=== PATIENT | male | born 1955 | race African-American/Black ===

== ENCOUNTER 2017-03-31 09:10 | Inpatient (IN) ==
[2017-03-31] MEDS ORDERED: ASPIRIN 325 MG TABLET PO STA (09:40)
[2017-03-31] MEDS ORDERED: ASPIRIN 325 MG TABLET ONE (09:46)
[2017-03-31 10:30] LABS: Basophils % 0.2 % (0.0-0.8); Eosinophils % 0.8 % (0.00-10.9); Hematocrit 39.4 VOL% (42.0-52.0); Hemoglobin 13.7 GM/DL (14.0-18.0); Immature Granulocytes % 0.2 %; Immature Granulocytes Absolute 0.01 #; Lymphocytes # 1.3 10*3/uL (1.4-4.0); Lymphocytes % 24.6 % (21.2-54.2); Mean Corpuscular HGB Conc 34.8 GM/DL (32-36); Mean Corpuscular Hemoglobin 32 PG (27-34); Mean Corpuscular Volume 92.7 FL (87-102); Mean Platelet Volume 11.4 FL (9.6-12.0); Monocytes # 0.5 10*3/uL (0.11-0.8); Monocytes % 9.8 % (1.7-12.7); Neutrophils # 3.3 10*3/uL (1.4-7.4); Neutrophils % 64.4 % (38.7-73.9); Platelet Count 112 T/CUMM (130-400); Red Blood Count 4.25 MC/CUMM (3.8-5.5); Red Cell Distribution Width 13.7 % (9.3-17.3); White Blood Count 5.1 T/CUMM (4-12)
[2017-03-31 10:40] LABS: PT Patient Result 10.8 SECS
[2017-03-31 11:04] LABS: Albumin 3.8 G/DL (3.4-5.0); Bilirubin,Total 0.9 MG/DL (0.2-1.0); Calcium 9.4 MG/DL (8.5-10.1); Osmolality,Calculated 278.5 MOS/KG (273-304); Potassium 3.3 MMOL/L (3.5-5.1); Total Protein 7.5 G/DL (6.4-8.3)
[2017-03-31] MEDS ORDERED: LABETALOL 20 MG/4 ML SYRINGE IV PRN (11:13)
[2017-03-31] MEDS ORDERED: LABETALOL 20 MG/4 ML SYRINGE IV ONE (11:41)
[2017-03-31 12:38] LABS: Cholesterol 226 MG/DL (50-200); HDL Cholesterol 54 MG/DL (40-60); Risk Ratio 4.19; Triglycerides 131 MG/DL (2-150); Troponin I Only < 0.015 NG/ML (0.00-0.045); VLDL CHOLESTEROL 26.2 MG/DL
[2017-03-31 17:36] LABS: Barbiturates Screen,Urine Negative (Negative); Benzodiazepines Screen,Urine Negative (Negative); Cannabinoid Screen,Urine Negative (Negative); Opiate Screen,Urine Positive (Negative); Phencyclidine Screen,Urine Negative (Negative)
[2017-03-31] MEDS: amLODIPine 10 MG TABLET PO SCH (21:09)
[2017-03-31] MEDS: CARVEDILOL 25 MG TABLET PO SCH (21:09)
[2017-04-01 05:27] LABS: Basophils % 0.3 % (0.0-0.8); Eosinophils # 0.1 10*3/uL (0.0-0.87); Eosinophils % 1.4 % (0.00-10.9); Hematocrit 31.9 VOL% (42.0-52.0); Hemoglobin 10.7 GM/DL (14.0-18.0); Immature Granulocytes % 0.3 %; Immature Granulocytes Absolute 0.01 #; Lymphocytes # 1.2 10*3/uL (1.4-4.0); Lymphocytes % 34.3 % (21.2-54.2); Mean Corpuscular HGB Conc 33.5 GM/DL (32-36); Mean Corpuscular Hemoglobin 32 PG (27-34); Mean Corpuscular Volume 95.5 FL (87-102); Mean Platelet Volume 11.8 FL (9.6-12.0); Monocytes # 0.5 10*3/uL (0.11-0.8); Monocytes % 12.5 % (1.7-12.7); Neutrophils # 1.9 10*3/uL (1.4-7.4); Neutrophils % 51.2 % (38.7-73.9); Platelet Count 87 T/CUMM (130-400); Red Blood Count 3.34 MC/CUMM (3.8-5.5); Red Cell Distribution Width 13.6 % (9.3-17.3); White Blood Count 3.6 T/CUMM (4-12)
[2017-04-01 05:59] LABS: Calcium 8.4 MG/DL (8.5-10.1); Eosinophils 3 % (0-10); Giant Platelets Few; Hypochromasia 1+; Lymphocytes 29 % (20-55); Osmolality,Calculated 283.1 MOS/KG (273-304); Ovalocytes Slight; Platelet Estimate Decreased; Segmented Neutrophils 55 % (50-85); Total Cells Counted 100
[2017-04-01] MEDS: VALSARTAN 160 MG TABLET PO SCH (08:32)
[2017-04-01] MEDS: POTASSIUM CHLORIDE 8 MEQ CAPSULE PO SCH (08:32)
[2017-04-01] MEDS: CARVEDILOL 25 MG TABLET PO SCH ×2 (08:32→20:29)
[2017-04-01] MEDS: ASPIRIN 325 MG TABLET PO SCH (08:32)
[2017-04-01] MEDS: CLOPIDOGREL 75 MG TABLET PO SCH (08:32)
[2017-04-01] MEDS ORDERED: DIAZEPAM 5 MG TABLET PO ONE (09:00)
[2017-04-01] MEDS ORDERED: POTASSIUM CHLORIDE 20 MEQ TABLET PO ONE (11:00)
[2017-04-01] MEDS ORDERED: DONEPEZIL 10 MG TABLET ONE (15:58)
[2017-04-01] MEDS: DONEPEZIL 10 MG TABLET PO SCH (16:07)
[2017-04-01] MEDS: amLODIPine 10 MG TABLET PO SCH (20:29)
[2017-04-01] MEDS: ATORVASTATIN 40 MG TABLET PO SCH (20:29)
[2017-04-02] MEDS: CLOPIDOGREL 75 MG TABLET PO SCH (08:27)
[2017-04-02] MEDS: CARVEDILOL 25 MG TABLET PO SCH ×2 (08:27→21:14)
[2017-04-02] MEDS: VALSARTAN 160 MG TABLET PO SCH (08:27)
[2017-04-02] MEDS: ASPIRIN 325 MG TABLET PO SCH (08:28)
[2017-04-02] MEDS: POTASSIUM CHLORIDE 8 MEQ CAPSULE PO SCH (08:28)
[2017-04-02] MEDS ORDERED: POTASSIUM CHLORIDE 20 MEQ/15 ML UDCUP PO ONE (11:58)
[2017-04-02] MEDS: DONEPEZIL 10 MG TABLET PO SCH (16:47)
[2017-04-02] MEDS: amLODIPine 10 MG TABLET PO SCH (21:14)
[2017-04-02] MEDS: ATORVASTATIN 40 MG TABLET PO SCH (21:14)
[2017-04-03] MEDS: CLOPIDOGREL 75 MG TABLET PO SCH (09:08)
[2017-04-03] MEDS: ASPIRIN 325 MG TABLET PO SCH (09:08)
[2017-04-03] MEDS: CARVEDILOL 25 MG TABLET PO SCH ×2 (09:08→20:11)
[2017-04-03] MEDS: POTASSIUM CHLORIDE 8 MEQ CAPSULE PO SCH (09:08)
[2017-04-03] MEDS: VALSARTAN 160 MG TABLET PO SCH (09:08)
[2017-04-03] MEDS: DONEPEZIL 10 MG TABLET PO SCH (17:13)
[2017-04-03] MEDS: ATORVASTATIN 40 MG TABLET PO SCH (20:11)
[2017-04-03] MEDS: amLODIPine 10 MG TABLET PO SCH (20:11)
[2017-04-04 05:53] LABS: Apearance,Urine CLEAR (Clear); Bacteria,Urine Occasional /HPF (Few); Bilirubin,Urine Negative (Negative); Blood, Urine Negative (Negative); Glucose,Urine (UA) Negative (Negative); Ketones,Urine Negative (Negative); Mucus,Urine Occasional /LPF (Occasional); Nitrite,Urine Negative (Negative); Protein,Urine Negative; RBC,Urine 1 /HPF (0-4); Squamous Epithelial Cell,Urine Occasional /HPF (0-10); Urine Color Yellow (Yellow); Urine Specific Gravity 1.021 (1.001-1.035); WBC,Urine 1 /HPF (0-6)
[2017-04-04] MEDS: POTASSIUM CHLORIDE 8 MEQ CAPSULE PO SCH (08:45)
[2017-04-04] MEDS: CLOPIDOGREL 75 MG TABLET PO SCH (08:45)
[2017-04-04] MEDS: ASPIRIN 325 MG TABLET PO SCH (08:45)
[2017-04-04] MEDS: VALSARTAN 160 MG TABLET PO SCH (08:45)
[2017-04-04] MEDS: CARVEDILOL 25 MG TABLET PO SCH ×2 (08:45→21:11)
[2017-04-04] MEDS: DONEPEZIL 10 MG TABLET PO SCH (17:32)
[2017-04-04] MEDS: amLODIPine 10 MG TABLET PO SCH (21:10)
[2017-04-04] MEDS: ATORVASTATIN 40 MG TABLET PO SCH (21:12)
[2017-04-05 08:16] VITALS: BP 123/61
[2017-04-05] MEDS: CARVEDILOL 25 MG TABLET PO SCH (09:24)
[2017-04-05] MEDS: CLOPIDOGREL 75 MG TABLET PO SCH (09:24)
[2017-04-05] MEDS: POTASSIUM CHLORIDE 8 MEQ CAPSULE PO SCH (09:24)
[2017-04-05] MEDS: VALSARTAN 160 MG TABLET PO SCH (09:24)
== END 2017-04-05 11:50 | disposition swing bed (61) | DRG 65 ==
LOC: EDUNIT# → EDBD → N.ED 09:10 → N.EDINP 10:49 → SUATTDRO 10:49 → N.EDINP 12:28 → N.4E 12:46
PROVIDERS: ADMIT Family Medicine; ATTEND Internal Medicine Geriatric Medicine

== ENCOUNTER 2019-04-10 05:35 | Inpatient (IN) ==
[2019-04-09 12:15] LABS: Basophils % 0.4 % (0.0-0.8); Eosinophils # 0.2 10*3/uL (0.0-0.87); Eosinophils % 4.8 % (0.00-10.9); Hematocrit 35.7 VOL% (42.0-52.0); Hemoglobin 12.1 GM/DL (14.0-18.0); Immature Granulocytes % 0.2 %; Immature Granulocytes Absolute 0.01 #; Lymphocytes # 1.4 10*3/uL (1.4-4.0); Lymphocytes % 28.3 % (21.2-54.2); Mean Corpuscular HGB Conc 33.9 GM/DL (32-36); Mean Corpuscular Volume 96.2 FL (87-102); Mean Platelet Volume 10.5 FL (9.6-12.0); Monocytes % 10.2 % (1.7-12.7); Neutrophils % 56.1 % (38.7-73.9); Platelet Count 147 T/CUMM (130-400); Red Blood Count 3.71 MC/CUMM (3.8-5.5); Red Cell Distribution Width 13.5 % (9.3-17.3)
[2019-04-09 12:30] LABS: Calcium 9.2 MG/DL (8.5-10.1); Osmolality,Calculated 279.3 MOS/KG (273-304)
[2019-04-10] MEDS ORDERED: ERTAPENEM 1,000 MG VIAL ONE (05:58)
[2019-04-10] MEDS ORDERED: ALVIMOPAN 12 MG CAPSULE ONE (05:58)
[2019-04-10] MEDS ORDERED: ALVIMOPAN 12 MG CAPSULE PO ONE (06:00)
[2019-04-10] MEDS ORDERED: ERTAPENEM 1,000 MG in SODIUM CHLORIDE 0.9% 100 ML IV ONE (06:00)
[2019-04-10] MEDS: LACTATED RINGERS 1,000 ML IV SCH ×3 (08:05→15:24)
[2019-04-10] MEDS ORDERED: LIDOCAINE 1% 5 ML VIAL ONE (08:23)
[2019-04-10] MEDS ORDERED: DEXAMETHASONE 4 MG/1 ML VIAL ONE (08:23)
[2019-04-10] MEDS ORDERED: BUPIVACAINE MPF 0.5% /EPI 30 ML VIAL ONE (08:23)
[2019-04-10] MEDS ORDERED: LIDOCAINE 1%/EPI INJ 20 ML VIAL ONE (09:03)
[2019-04-10] MEDS ORDERED: TISSUE ADHESIVE 1 EACH APPLICATOR TOP ONE (09:03)
[2019-04-10] MEDS ORDERED: INDOCYANINE GREEN 25 MG VIAL IV ONE (09:44)
[2019-04-10] MEDS ORDERED: propofoL 200 MG/20 ML VIAL IV ONE (13:24)
[2019-04-10] MEDS ORDERED: ALBUMIN 5% 12.5 GM/250 ML VIAL IV ONE (13:25)
[2019-04-10] MEDS ORDERED: SUFentanil 50 MCG/ML AMP ONE (13:25)
[2019-04-10] MEDS ORDERED: ONDANSETRON 4 MG/2 ML VIAL ONE (13:25)
[2019-04-10] MEDS ORDERED: ePHEDrine 50 MG/ML AMP ONE (13:25)
[2019-04-10] MEDS ORDERED: PHENYLEPHRINE 10 MG/1 ML VIAL IV ONE (13:25)
[2019-04-10] MEDS ORDERED: LIDOCAINE 2% 5 ML VIAL ONE (13:25)
[2019-04-10] MEDS ORDERED: DESFLURANE 1 UNIT/15 MINUTE INH ONE (13:25)
[2019-04-10] MEDS ORDERED: MIDAZOLAM 2 MG/2 ML VIAL ONE (13:25)
[2019-04-10] MEDS ORDERED: LACTATED RINGERS 1,000 ML IV ONE (13:26)
[2019-04-10] MEDS ORDERED: GLYCOPYRROLATE 0.4 MG/2 ML VIAL ONE (13:26)
[2019-04-10] MEDS ORDERED: NEOSTIGMINE 10 MG/10 ML VIAL ONE (13:26)
[2019-04-10] MEDS ORDERED: ROCURONIUM 100 MG/10 ML VIAL IV ONE (13:26)
[2019-04-10] MEDS ORDERED: HYDROCORTISONE 100 MG VIAL ONE (13:26)
[2019-04-10] MEDS ORDERED: ETOMIDATE 40 MG/20 ML VIAL IV ONE (13:26)
[2019-04-10] MEDS ORDERED: METOPROLOL TARTRATE 5 MG/5 ML VIAL IV ONE (13:26)
[2019-04-10] MEDS ORDERED: HYDROmorphone 2 MG/1 ML VIAL IV PRN (14:32)
[2019-04-10 15:18] LABS: Eosinophils # 0.1 10*3/uL (0.0-0.87); Eosinophils % 1.2 % (0.00-10.9); Hemoglobin 11.3 GM/DL (14.0-18.0); Immature Granulocytes % 0.2 %; Immature Granulocytes Absolute 0.01 #; Lymphocytes # 0.9 10*3/uL (1.4-4.0); Lymphocytes % 17.8 % (21.2-54.2); Mean Corpuscular HGB Conc 36.5 GM/DL (32-36); Mean Corpuscular Volume 95.7 FL (87-102); Monocytes % 5.1 % (1.7-12.7); Neutrophils % 75.7 % (38.7-73.9); Platelet Count 141 T/CUMM (130-400); Red Blood Count 3.24 MC/CUMM (3.8-5.5); Red Cell Distribution Width 13.3 % (9.3-17.3); White Blood Count 5.1 T/CUMM (4-12)
[2019-04-10] MEDS: ONDANSETRON 4 MG/2 ML VIAL IV PRN (15:24)
[2019-04-10] MEDS: KETOROLAC 15 MG/1 ML VIAL IV SCH ×2 (15:24→22:33)
[2019-04-10 15:33] LABS: Calcium 8.8 MG/DL (8.5-10.1); Osmolality,Calculated 278.7 MOS/KG (273-304)
[2019-04-10] MEDS ORDERED: amLODIPine 10 MG TABLET PO SCH (21:00)
[2019-04-10] MEDS: carvediloL 25 MG TABLET PO SCH (21:30)
[2019-04-10] MEDS: ALVIMOPAN 12 MG CAPSULE PO SCH (21:30)
[2019-04-11] MEDS: LACTATED RINGERS 1,000 ML IV SCH ×2 (01:29→13:03)
[2019-04-11 05:50] LABS: Basophils % 0.1 % (0.0-0.8); Eosinophils # 0.1 10*3/uL (0.0-0.87); Eosinophils % 0.8 % (0.00-10.9); Hematocrit 30.2 VOL% (42.0-52.0); Hemoglobin 10.4 GM/DL (14.0-18.0); Immature Granulocytes % 0.5 %; Immature Granulocytes Absolute 0.04 #; Lymphocytes # 1.1 10*3/uL (1.4-4.0); Lymphocytes % 14.2 % (21.2-54.2); Mean Corpuscular HGB Conc 34.4 GM/DL (32-36); Mean Corpuscular Volume 94.7 FL (87-102); Mean Platelet Volume 10.4 FL (9.6-12.0); Monocytes % 8.9 % (1.7-12.7); Neutrophils % 75.5 % (38.7-73.9); Platelet Count 128 T/CUMM (130-400); Red Blood Count 3.19 MC/CUMM (3.8-5.5); Red Cell Distribution Width 13.2 % (9.3-17.3); White Blood Count 7.7 T/CUMM (4-12)
[2019-04-11 06:05] LABS: Osmolality,Calculated 276.7 MOS/KG (273-304)
[2019-04-11] MEDS ORDERED: ENOXAPARIN 40 MG/0.4 ML SYRINGE SUBCUT SCH (07:19)
[2019-04-11] MEDS ORDERED: POTASSIUM CHLORIDE 20 MEQ TABLET PO ONE (07:59)
[2019-04-11] MEDS ORDERED: CLOPIDOGREL 75 MG TABLET PO SCH (09:00)
[2019-04-11] MEDS ORDERED: ASPIRIN EC 81 MG TABLET PO SCH (09:00)
[2019-04-11] MEDS ORDERED: PANTOPRAZOLE 40 MG TABLET PO SCH (09:00)
[2019-04-11] MEDS ORDERED: POTASSIUM CHLORIDE 8 MEQ CAPSULE PO SCH (09:00)
[2019-04-11] MEDS: ONDANSETRON 4 MG/2 ML VIAL IV PRN (09:10)
[2019-04-11] MEDS: carvediloL 25 MG TABLET PO SCH (09:19)
[2019-04-11] MEDS: ALVIMOPAN 12 MG CAPSULE PO SCH (09:19)
[2019-04-11 11:27] VITALS: BP 131/92
== END 2019-04-11 16:11 | disposition home or self-care (01) | DRG 331 ==
LOC: N.SDSINP 05:35 → N.OR 05:35 → N.SDSINP 05:36 → N.3E 14:10 → N.OR 04-11 16:11 → N.3E 04-12 06:08
PROVIDERS: ADMIT Surgery; ATTEND Surgery

== ENCOUNTER 2019-07-26 22:20 | Inpatient (IN) ==
[2019-07-26 23:10] LABS: Basophils % 0.3 % (0.0-0.8); Eosinophils # 0.1 10*3/uL (0.0-0.87); Eosinophils % 0.7 % (0.00-10.9); Hematocrit 36.7 VOL% (42.0-52.0); Hemoglobin 12.3 GM/DL (14.0-18.0); Immature Granulocytes % 0.3 %; Immature Granulocytes Absolute 0.02 #; Lymphocytes # 1.1 10*3/uL (1.4-4.0); Lymphocytes % 15.8 % (21.2-54.2); Mean Corpuscular HGB Conc 33.5 GM/DL (32-36); Mean Corpuscular Volume 95.3 FL (87-102); Monocytes % 7.3 % (1.7-12.7); Neutrophils % 75.6 % (38.7-73.9); Platelet Count 126 T/CUMM (130-400); Red Blood Count 3.85 MC/CUMM (3.8-5.5); Red Cell Distribution Width 13.6 % (9.3-17.3); White Blood Count 6.9 T/CUMM (4-12)
[2019-07-26 23:18] LABS: PT Patient Result 11.2 SECS (9.8-11.9); Partial Thromboplastin Time 27.9 SECS (23.9-33.8)
[2019-07-26 23:31] LABS: Alanine Aminotransferase 21 U/L (16-61); Albumin 3.6 G/DL (3.4-5.0); Alkaline Phosphatase 53 U/L (45-117); Aspartate Amino Transferase 18 U/L (0-37); Blood Urea Nitrogen 14 MG/DL (7-18); Calcium 9.1 MG/DL (8.5-10.1); Estimated Glom Filtration Rate 81 ML/MIN; Ferritin 42.3 ng/ml (26-388); Glucose 127 MG/DL (74-106); Osmolality,Calculated 277.7 MOS/KG (273-304); Total Protein 7.8 G/DL (6.4-8.3); Troponin I < 0.015 NG/ML (0.00-0.045)
[2019-07-26] MEDS ORDERED: ACETAMINOPHEN 325 MG TABLET PO PRN (23:50)
[2019-07-26] MEDS ORDERED: GLUCAGON 1 MG VIAL IM PRN (23:50)
[2019-07-26] MEDS ORDERED: ZALEPLON 5 MG CAPSULE PO PRN (23:50)
[2019-07-26] MEDS ORDERED: diphenhydrAMINE CAP 25 MG CAPSULE PO PRN (23:50)
[2019-07-26] MEDS ORDERED: ONDANSETRON 4 MG/2 ML VIAL IV PRN (23:50)
[2019-07-26] MEDS ORDERED: PROMETHAZINE 25 MG/1 ML VIAL IM PRN (23:50)
[2019-07-26] MEDS ORDERED: guaiFENesin/DM ER 600-30 MG TABLET PO PRN (23:50)
[2019-07-26] MEDS ORDERED: DEXTROSE 50% 25 GM/50 ML VIAL IV PRN (23:50)
[2019-07-26] MEDS ORDERED: NICOTINE 21 MG/24 HR PATCH TRANSDERM PRN (23:50)
[2019-07-26] MEDS ORDERED: DOCUSATE SODIUM 100 MG CAPSULE PO PRN (23:50)
[2019-07-26] MEDS ORDERED: MORPHINE 4 MG/1 ML VIAL IV PRN (23:50)
[2019-07-26] MEDS ORDERED: hydrALAZINE 20 MG/1 ML VIAL IV PRN (23:50)
[2019-07-27 00:01] LABS: Apearance,Urine CLEAR (Clear); Bacteria,Urine Occasional /HPF (Few); Bilirubin,Urine Negative (Negative); Blood, Urine Negative (Negative); Glucose,Urine (UA) Negative (Negative); Ketones,Urine 5 mg/dL (Negative); Mucus,Urine Occasional /LPF (Occasional); Nitrite,Urine Negative (Negative); Protein,Urine Negative; RBC,Urine 2 /HPF (0-4); Squamous Epithelial Cell,Urine Occasional /HPF (0-10); Urine Color Yellow (Yellow); Urine Specific Gravity 1.017 (1.001-1.035); Urine Urobilinogen < 2.0 EU/DL (0.2-1.0); WBC,Urine 1 /HPF (0-6)
[2019-07-27 00:03] LABS: Barbiturates Screen,Urine Negative (Negative); Benzodiazepines Screen,Urine Negative (Negative); Cannabinoid Screen,Urine Negative (Negative); Opiate Screen,Urine Negative (Negative); Phencyclidine Screen,Urine Negative (Negative)
[2019-07-27] MEDS: SODIUM CHLORIDE 0.9% 1,000 ML IV SCH ×2 (00:05→14:48)
[2019-07-27] MEDS ORDERED: POTASSIUM CHLORIDE 20 MEQ TABLET PO ONE (06:19)
[2019-07-27 07:24] LABS: Basophils % 0.1 % (0.0-0.8); Eosinophils % 0.3 % (0.00-10.9); Hematocrit 34.7 VOL% (42.0-52.0); Hemoglobin 11.8 GM/DL (14.0-18.0); Immature Granulocytes % 0.3 %; Immature Granulocytes Absolute 0.02 #; Lymphocytes # 1.2 10*3/uL (1.4-4.0); Lymphocytes % 17.8 % (21.2-54.2); Mean Corpuscular Volume 95.1 FL (87-102); Mean Platelet Volume 11.4 FL (9.6-12.0); Monocytes % 7.9 % (1.7-12.7); Neutrophils % 73.6 % (38.7-73.9); Platelet Count 118 T/CUMM (130-400); Red Blood Count 3.65 MC/CUMM (3.8-5.5); Red Cell Distribution Width 13.4 % (9.3-17.3); White Blood Count 6.9 T/CUMM (4-12)
[2019-07-27 07:41] LABS: Albumin 3.3 G/DL (3.4-5.0); Bilirubin,Total 0.9 MG/DL (0.2-1.0); Calcium 9.5 MG/DL (8.5-10.1); Risk Ratio 3.96; Total Protein 7.4 G/DL (6.4-8.3); VLDL CHOLESTEROL 17.2 MG/DL
[2019-07-27] MEDS ORDERED: MORPHINE 4 MG/1 ML VIAL IV PRN (08:30)
[2019-07-27] MEDS ORDERED: ASPIRIN EC 325 MG TABLET PO SCH (09:00)
[2019-07-27] MEDS ORDERED: ASPIRIN 300 MG SUPP RECTAL SCH (09:00)
[2019-07-27] MEDS ORDERED: ASPIRIN EC 81 MG TABLET PO SCH (09:00)
[2019-07-27] MEDS: CLOPIDOGREL 75 MG TABLET PO SCH (10:44)
[2019-07-27] MEDS: PANTOPRAZOLE 40 MG TABLET PO SCH (10:45)
[2019-07-27] MEDS: ATORVASTATIN 40 MG TABLET PO SCH (14:01)
[2019-07-28] MEDS: SODIUM CHLORIDE 0.9% 1,000 ML IV SCH ×2 (01:30→18:46)
[2019-07-28] MEDS: PANTOPRAZOLE 40 MG TABLET PO SCH (09:32)
[2019-07-28] MEDS: ATORVASTATIN 40 MG TABLET PO SCH (09:33)
[2019-07-28] MEDS: CLOPIDOGREL 75 MG TABLET PO SCH (09:33)
[2019-07-28] MEDS: APIXABAN 2.5 MG TABLET PO SCH (22:01)
[2019-07-29] MEDS: SODIUM CHLORIDE 0.9% 1,000 ML IV SCH ×2 (02:38→09:19)
[2019-07-29 06:21] LABS: Basophils % 0.2 % (0.0-0.8); Eosinophils # 0.1 10*3/uL (0.0-0.87); Eosinophils % 2.4 % (0.00-10.9); Hematocrit 35.6 VOL% (42.0-52.0); Hemoglobin 12.2 GM/DL (14.0-18.0); Immature Granulocytes % 0.5 %; Immature Granulocytes Absolute 0.03 #; Lymphocytes # 1.4 10*3/uL (1.4-4.0); Mean Corpuscular HGB Conc 34.3 GM/DL (32-36); Mean Corpuscular Volume 94.7 FL (87-102); Mean Platelet Volume 11.4 FL (9.6-12.0); Monocytes % 11.9 % (1.7-12.7); Platelet Count 113 T/CUMM (130-400); Red Blood Count 3.76 MC/CUMM (3.8-5.5); Red Cell Distribution Width 13.2 % (9.3-17.3); White Blood Count 5.9 T/CUMM (4-12)
[2019-07-29 06:27] LABS: Calcium 8.9 MG/DL (8.5-10.1); Osmolality,Calculated 277.5 MOS/KG (273-304)
[2019-07-29] MEDS: ATORVASTATIN 40 MG TABLET PO SCH (09:17)
[2019-07-29] MEDS: ASPIRIN EC 81 MG TABLET PO SCH (09:17)
[2019-07-29] MEDS: APIXABAN 2.5 MG TABLET PO SCH ×2 (09:17→20:45)
[2019-07-29] MEDS: PANTOPRAZOLE 40 MG TABLET PO SCH (09:17)
[2019-07-29] MEDS: POTASSIUM CHLORIDE RIDER 10 MEQ in PREMIX 1 EACH IV PRN ×5 (09:19→15:57)
[2019-07-30] MEDS: SODIUM CHLORIDE 0.9% 1,000 ML IV SCH ×3 (08:52→17:54)
[2019-07-30] MEDS: PANTOPRAZOLE 40 MG TABLET PO SCH (09:32)
[2019-07-30] MEDS: ATORVASTATIN 40 MG TABLET PO SCH (09:33)
[2019-07-30] MEDS: ASPIRIN EC 81 MG TABLET PO SCH (09:33)
[2019-07-30] MEDS: APIXABAN 2.5 MG TABLET PO SCH ×2 (10:40→21:57)
[2019-07-31 07:02] LABS: Eosinophils # 0.1 10*3/uL (0.0-0.87); Eosinophils % 3.1 % (0.00-10.9); Hematocrit 32.8 VOL% (42.0-52.0); Hemoglobin 11.3 GM/DL (14.0-18.0); Immature Granulocytes % 0.2 %; Immature Granulocytes Absolute 0.01 #; Lymphocytes # 1.2 10*3/uL (1.4-4.0); Lymphocytes % 26.9 % (21.2-54.2); Mean Corpuscular HGB Conc 34.5 GM/DL (32-36); Mean Corpuscular Volume 93.7 FL (87-102); Mean Platelet Volume 11.3 FL (9.6-12.0); Monocytes % 12.1 % (1.7-12.7); Neutrophils % 57.7 % (38.7-73.9); Platelet Count 104 T/CUMM (130-400); Red Cell Distribution Width 13.3 % (9.3-17.3); White Blood Count 4.5 T/CUMM (4-12)
[2019-07-31 07:22] LABS: Calcium 8.6 MG/DL (8.5-10.1); Osmolality,Calculated 274.8 MOS/KG (273-304)
[2019-07-31] MEDS: SODIUM CHLORIDE 0.9% 1,000 ML IV SCH (08:00)
[2019-07-31] MEDS: APIXABAN 2.5 MG TABLET PO SCH ×2 (10:08→22:24)
[2019-07-31] MEDS: PANTOPRAZOLE 40 MG TABLET PO SCH (10:08)
[2019-07-31] MEDS: ATORVASTATIN 40 MG TABLET PO SCH (10:08)
[2019-07-31] MEDS: ASPIRIN EC 81 MG TABLET PO SCH (10:08)
[2019-07-31] MEDS ORDERED: POTASSIUM CHLORIDE 20 MEQ PACK PO ONE (12:22)
[2019-08-01 06:47] LABS: Basophils % 0.2 % (0.0-0.8); Eosinophils # 0.2 10*3/uL (0.0-0.87); Eosinophils % 3.5 % (0.00-10.9); Hematocrit 33.2 VOL% (42.0-52.0); Hemoglobin 11.2 GM/DL (14.0-18.0); Immature Granulocytes % 0.2 %; Immature Granulocytes Absolute 0.01 #; Lymphocytes # 1.3 10*3/uL (1.4-4.0); Lymphocytes % 26.6 % (21.2-54.2); Mean Corpuscular HGB Conc 33.7 GM/DL (32-36); Mean Corpuscular Volume 94.9 FL (87-102); Mean Platelet Volume 11.6 FL (9.6-12.0); Monocytes % 12.9 % (1.7-12.7); Neutrophils % 56.6 % (38.7-73.9); Platelet Count 101 T/CUMM (130-400); Red Cell Distribution Width 13.4 % (9.3-17.3); White Blood Count 4.8 T/CUMM (4-12)
[2019-08-01 07:09] LABS: Hypochromasia 1+; Platelet Estimate Decreased
[2019-08-01 07:10] LABS: Calcium 8.9 MG/DL (8.5-10.1); Osmolality,Calculated 278.5 MOS/KG (273-304)
[2019-08-01] MEDS: SODIUM CHLORIDE 0.9% 1,000 ML IV SCH ×2 (08:56→11:03)
[2019-08-01] MEDS: PANTOPRAZOLE 40 MG TABLET PO SCH (09:50)
[2019-08-01] MEDS: ATORVASTATIN 40 MG TABLET PO SCH (09:50)
[2019-08-01] MEDS: APIXABAN 2.5 MG TABLET PO SCH ×2 (09:50→22:53)
[2019-08-01] MEDS: ASPIRIN EC 81 MG TABLET PO SCH (09:50)
[2019-08-01] MEDS: POTASSIUM CHLORIDE RIDER 10 MEQ in PREMIX 1 EACH IV PRN ×4 (09:51→13:48)
[2019-08-02 06:20] LABS: Basophils % 0.2 % (0.0-0.8); Eosinophils # 0.1 10*3/uL (0.0-0.87); Eosinophils % 2.9 % (0.00-10.9); Hematocrit 33.2 VOL% (42.0-52.0); Hemoglobin 11.5 GM/DL (14.0-18.0); Immature Granulocytes % 0.4 %; Immature Granulocytes Absolute 0.02 #; Lymphocytes # 1.4 10*3/uL (1.4-4.0); Lymphocytes % 28.6 % (21.2-54.2); Mean Corpuscular HGB Conc 34.6 GM/DL (32-36); Mean Corpuscular Volume 94.3 FL (87-102); Mean Platelet Volume 11.1 FL (9.6-12.0); Monocytes % 12.5 % (1.7-12.7); Neutrophils % 55.4 % (38.7-73.9); Platelet Count 109 T/CUMM (130-400); Red Blood Count 3.52 MC/CUMM (3.8-5.5); Red Cell Distribution Width 13.4 % (9.3-17.3); White Blood Count 4.9 T/CUMM (4-12)
[2019-08-02 06:53] LABS: Calcium 9.1 MG/DL (8.5-10.1); Osmolality,Calculated 274.8 MOS/KG (273-304)
[2019-08-02] MEDS: SODIUM CHLORIDE 0.9% 1,000 ML IV SCH ×2 (08:44→16:23)
[2019-08-02] MEDS: ATORVASTATIN 40 MG TABLET PO SCH (09:40)
[2019-08-02] MEDS: APIXABAN 2.5 MG TABLET PO SCH ×2 (09:40→20:30)
[2019-08-02] MEDS: ASPIRIN EC 81 MG TABLET PO SCH (09:40)
[2019-08-02] MEDS: PANTOPRAZOLE 40 MG TABLET PO SCH (09:40)
[2019-08-02] MEDS: POTASSIUM CHLORIDE RIDER 10 MEQ in PREMIX 1 EACH IV PRN ×6 (09:40→23:50)
[2019-08-03] MEDS: POTASSIUM CHLORIDE RIDER 10 MEQ in PREMIX 1 EACH IV PRN (01:06)
[2019-08-03 06:27] LABS: Basophils % 0.4 % (0.0-0.8); Eosinophils # 0.2 10*3/uL (0.0-0.87); Eosinophils % 3.3 % (0.00-10.9); Hematocrit 34.4 VOL% (42.0-52.0); Hemoglobin 11.7 GM/DL (14.0-18.0); Immature Granulocytes % 0.4 %; Immature Granulocytes Absolute 0.02 #; Lymphocytes # 1.2 10*3/uL (1.4-4.0); Lymphocytes % 26.8 % (21.2-54.2); Mean Corpuscular Volume 96.4 FL (87-102); Mean Platelet Volume 11.5 FL (9.6-12.0); Monocytes % 10.9 % (1.7-12.7); Neutrophils % 58.2 % (38.7-73.9); Platelet Count 113 T/CUMM (130-400); Red Blood Count 3.57 MC/CUMM (3.8-5.5); Red Cell Distribution Width 13.1 % (9.3-17.3); White Blood Count 4.5 T/CUMM (4-12)
[2019-08-03 06:38] LABS: Calcium 9.3 MG/DL (8.5-10.1); Osmolality,Calculated 273.8 MOS/KG (273-304)
[2019-08-03 06:55] LABS: Platelet Estimate Decreased
[2019-08-03 07:49] VITALS: BP 135/92
[2019-08-03] MEDS: APIXABAN 2.5 MG TABLET PO SCH (08:21)
[2019-08-03] MEDS: PANTOPRAZOLE 40 MG TABLET PO SCH (08:21)
[2019-08-03] MEDS: ATORVASTATIN 40 MG TABLET PO SCH (08:21)
[2019-08-03] MEDS: ASPIRIN EC 81 MG TABLET PO SCH (08:21)
[2019-08-03] MEDS: SODIUM CHLORIDE 0.9% 1,000 ML IV SCH (09:52)
== END 2019-08-03 11:45 | DRG 65 ==
LOC: EDBD → EDUNIT# → N.ED 22:20 → SUATTDRO 23:50 → N.EDINP 23:50 → N.3E 07-27 02:31
PROVIDERS: ADMIT Internal Medicine; ATTEND Internal Medicine

== ENCOUNTER 2020-05-05 21:55 | Inpatient (IN) ==
[2020-05-05] MEDS ORDERED: SODIUM CHLORIDE 0.9% 1,000 ML IV STA (22:14)
[2020-05-05 22:27] LABS: Hematocrit 37.2 VOL% (42.0-52.0); Hemoglobin 12.5 GM/DL (14.0-18.0); Immature Granulocytes % 14.6 %; Immature Granulocytes Absolute 0.37 #; Lymphocytes # 0.3 10*3/uL (1.4-4.0); Lymphocytes % 9.9 % (21.2-54.2); Mean Corpuscular HGB Conc 33.6 GM/DL (32-36); Mean Corpuscular Volume 95.6 FL (87-102); Mean Platelet Volume 11.8 FL (9.6-12.0); Monocytes % 1.2 % (1.7-12.7); Neutrophils % 74.3 % (38.7-73.9); Red Blood Count 3.89 MC/CUMM (3.8-5.5); Red Cell Distribution Width 13.3 % (9.3-17.3); White Blood Count 2.5 T/CUMM (4-12)
[2020-05-05 22:28] LABS: Platelet Count 81 T/CUMM (130-400)
[2020-05-05 22:32] LABS: INR 1.4; PT Patient Result 14.4 SECS (9.8-11.9)
[2020-05-05 22:54] LABS: Albumin 3.3 G/DL (3.4-5.0); Bilirubin,Total 2.5 MG/DL (0.2-1.0); Calcium 8.8 MG/DL (8.5-10.1); Osmolality,Calculated 279.5 MOS/KG (273-304); Potassium 2.9 MMOL/L (3.5-5.1); Thyroid Stimulating Hormone 0.769 uIU/ml (0.358-3.74); Total Protein 6.9 G/DL (6.4-8.3)
[2020-05-05 22:56] LABS: Band Neutrophils 14 % (0-10); Lymphocytes 13 % (20-55); Metamyelocytes 1 %; Segmented Neutrophils 71 % (50-85); Total Cells Counted 100
[2020-05-05 22:57] LABS: Hypochromasia 1+; Platelet Estimate Decreased
[2020-05-05] MEDS ORDERED: POTASSIUM CHLORIDE 20 MEQ TABLET PO STA (23:29)
[2020-05-05] MEDS ORDERED: cefTRIAXone 1,000 MG in SODIUM CHLORIDE 0.9% 100 ML IV STA (23:35)
[2020-05-05] MEDS ORDERED: LABETALOL 20 MG/4 ML SYRINGE IV STA (23:42)
[2020-05-05 23:54] LABS: Amorphous Crystals,Urine Occasional /HPF (Few); Bilirubin,Urine Negative (Negative); Blood, Urine Moderate mg/dL (Negative); Glucose,Urine (UA) Negative (Negative); Hyaline Casts,Urine 14 /LPF (0-3); Ketones,Urine Negative (Negative); Mucus,Urine Many /LPF (Occasional); Nitrite,Urine Negative (Negative); Protein,Urine >=500 MG/DL; RBC,Urine 2 /HPF (0-4); Urine Appearance CLEAR (Clear); Urine Color Amber (Yellow); Urine Specific Gravity 1.025 (1.001-1.035); Urine Urobilinogen < 2.0 EU/DL (0.2-1.0); WBC,Urine 1 /HPF (0-6)
[2020-05-05 23:55] LABS: Barbiturates Screen,Urine Negative (Negative); Benzodiazepines Screen,Urine Negative (Negative); Cannabinoid Screen,Urine Negative (Negative); Opiate Screen,Urine Negative (Negative); Phencyclidine Screen,Urine Negative (Negative)
[2020-05-06] MEDS ORDERED: SODIUM CHLORIDE 0.9% 1,000 ML IV STA (00:44)
[2020-05-06] MEDS ORDERED: AZITHROMYCIN INJ 500 MG in SODIUM CHLORIDE 0.9% 250 ML IV STA (00:46)
[2020-05-06] MEDS ORDERED: ONDANSETRON 4 MG/2 ML VIAL IV PRN (03:29)
[2020-05-06] MEDS ORDERED: GLUCAGON 1 MG VIAL IM PRN (03:29)
[2020-05-06] MEDS ORDERED: DEXTROSE 50% 25 GM/50 ML VIAL IV PRN (03:29)
[2020-05-06] MEDS ORDERED: ALBUTEROL/IPRATROPIUM 3 ML NEB RESP TX PRN (03:42)
[2020-05-06] MEDS: SODIUM CHLORIDE 0.9% 1,000 ML IV SCH ×2 (04:30→16:30)
[2020-05-06 08:34] LABS: Basophils % 0.2 % (0.0-0.8); Hematocrit 34.6 VOL% (42.0-52.0); Hemoglobin 11.5 GM/DL (14.0-18.0); Immature Granulocytes % 2.3 %; Lymphocytes # 0.4 10*3/uL (1.4-4.0); Mean Corpuscular HGB Conc 33.2 GM/DL (32-36); Monocytes % 7.8 % (1.7-12.7); Neutrophils % 84.7 % (38.7-73.9); Red Blood Count 3.53 MC/CUMM (3.8-5.5); Red Cell Distribution Width 13.7 % (9.3-17.3)
[2020-05-06 08:49] LABS: Platelet Count 59 T/CUMM (130-400); White Blood Count 8.6 T/CUMM (4-12)
[2020-05-06 08:51] LABS: Albumin 2.8 G/DL (3.4-5.0); Bilirubin,Total 4.7 MG/DL (0.2-1.0); Calcium 8.7 MG/DL (8.5-10.1); Osmolality,Calculated 279.5 MOS/KG (273-304); Potassium 3.4 MMOL/L (3.5-5.1); Total Protein 6.8 G/DL (6.4-8.3)
[2020-05-06] MEDS: APIXABAN 2.5 MG TABLET PO SCH ×2 (09:08→21:03)
[2020-05-06] MEDS: carvediloL 25 MG TABLET PO SCH ×2 (09:08→16:30)
[2020-05-06] MEDS: MEMANTINE 10 MG TABLET PO SCH ×2 (09:08→21:03)
[2020-05-06] MEDS: MAGNESIUM OXIDE 400 MG TABLET PO SCH (09:08)
[2020-05-06] MEDS: ASPIRIN EC 81 MG TABLET PO SCH (09:08)
[2020-05-06 09:13] LABS: Band Neutrophils 11 % (0-10); Hypochromasia 1+; Lymphocytes 7 % (20-55); Metamyelocytes 3 %; Myelocytes 1 %; Segmented Neutrophils 71 % (50-85); Total Cells Counted 100
[2020-05-06 09:14] LABS: Microcytosis 1+
[2020-05-06] MEDS: ATORVASTATIN 40 MG TABLET PO SCH (21:06)
[2020-05-06] MEDS: cefTRIAXone 1,000 MG in SODIUM CHLORIDE 0.9% 100 ML IV SCH (21:06)
[2020-05-07] MEDS: SODIUM CHLORIDE 0.9% 1,000 ML IV SCH ×3 (00:56→21:43)
[2020-05-07] MEDS ORDERED: ACETAMINOPHEN 325 MG TABLET PO PRN (05:15)
[2020-05-07 07:00] LABS: Basophils % 0.4 % (0.0-0.8); Eosinophils % 0.2 % (0.00-10.9); Hematocrit 31.1 VOL% (42.0-52.0); Hemoglobin 10.4 GM/DL (14.0-18.0); Immature Granulocytes % 0.4 %; Immature Granulocytes Absolute 0.02 #; Lymphocytes # 0.4 10*3/uL (1.4-4.0); Lymphocytes % 9.1 % (21.2-54.2); Mean Corpuscular HGB Conc 33.4 GM/DL (32-36); Mean Corpuscular Volume 97.5 FL (87-102); Mean Platelet Volume 11.9 FL (9.6-12.0); Monocytes % 9.8 % (1.7-12.7); Neutrophils % 80.1 % (38.7-73.9); Platelet Count 49 T/CUMM (130-400); Red Blood Count 3.19 MC/CUMM (3.8-5.5); Red Cell Distribution Width 13.3 % (9.3-17.3); White Blood Count 4.7 T/CUMM (4-12)
[2020-05-07 07:24] LABS: Band Neutrophils 4 % (0-10); Hypochromasia 1+; Lymphocytes 13 % (20-55); Segmented Neutrophils 76 % (50-85); Total Cells Counted 100
[2020-05-07 07:25] LABS: Microcytosis 1+; Platelet Estimate Decreased
[2020-05-07 07:37] LABS: Potassium 2.7 MMOL/L (3.5-5.1)
[2020-05-07 07:39] LABS: Calcium 8.5 MG/DL (8.5-10.1)
[2020-05-07 07:40] LABS: Albumin 2.5 G/DL (3.4-5.0); Osmolality,Calculated 281.4 MOS/KG (273-304)
[2020-05-07 07:55] LABS: Bilirubin,Total 4.42 MG/DL (0.2-1.0); Total Protein 6.6 G/DL (6.4-8.3)
[2020-05-07] MEDS: carvediloL 25 MG TABLET PO SCH ×2 (08:55→17:27)
[2020-05-07] MEDS: APIXABAN 2.5 MG TABLET PO SCH (08:55)
[2020-05-07] MEDS: ASPIRIN EC 81 MG TABLET PO SCH (08:55)
[2020-05-07] MEDS: MEMANTINE 10 MG TABLET PO SCH ×2 (08:55→21:39)
[2020-05-07] MEDS: AZITHROMYCIN 250 MG TABLET PO SCH (08:55)
[2020-05-07] MEDS: MAGNESIUM OXIDE 400 MG TABLET PO SCH (08:55)
[2020-05-07] MEDS: POTASSIUM CHLORIDE RIDER 10 MEQ in PREMIX 1 EACH IV PRN ×4 (10:40→13:54)
[2020-05-07] MEDS: cefTRIAXone 1,000 MG in SODIUM CHLORIDE 0.9% 100 ML IV SCH (21:37)
[2020-05-07] MEDS: ATORVASTATIN 40 MG TABLET PO SCH (21:38)
[2020-05-08 05:41] LABS: Basophils % 0.2 % (0.0-0.8); Eosinophils # 0.1 10*3/uL (0.0-0.87); Eosinophils % 2.3 % (0.00-10.9); Hematocrit 27.6 VOL% (42.0-52.0); Hemoglobin 9.2 GM/DL (14.0-18.0); Immature Granulocytes % 0.6 %; Immature Granulocytes Absolute 0.03 #; Lymphocytes # 0.6 10*3/uL (1.4-4.0); Lymphocytes % 11.6 % (21.2-54.2); Mean Corpuscular HGB Conc 33.3 GM/DL (32-36); Mean Corpuscular Volume 97.2 FL (87-102); Mean Platelet Volume 12.7 FL (9.6-12.0); Monocytes % 8.7 % (1.7-12.7); Neutrophils % 76.6 % (38.7-73.9); Red Blood Count 2.84 MC/CUMM (3.8-5.5); Red Cell Distribution Width 13.5 % (9.3-17.3); White Blood Count 5.3 T/CUMM (4-12)
[2020-05-08 05:45] LABS: Platelet Count 60 T/CUMM (130-400)
[2020-05-08 06:01] LABS: Albumin 2.2 G/DL (3.4-5.0); Bilirubin,Direct 1.5 MG/DL (0.0-0.20); Bilirubin,Total 2.8 MG/DL (0.2-1.0); Calcium 8.3 MG/DL (8.5-10.1); Potassium 2.9 MMOL/L (3.5-5.1); Total Protein 6.4 G/DL (6.4-8.3)
[2020-05-08 06:15] LABS: Band Neutrophils 2 % (0-10); Eosinophils 1 % (0-10); Lymphocytes 10 % (20-55); Segmented Neutrophils 74 % (50-85); Total Cells Counted 100
[2020-05-08 06:16] LABS: Hypochromasia 1+; Microcytosis 1+; Platelet Estimate Decreased
[2020-05-08] MEDS: AZITHROMYCIN 250 MG TABLET PO SCH (08:44)
[2020-05-08] MEDS: ASPIRIN EC 81 MG TABLET PO SCH (08:44)
[2020-05-08] MEDS: carvediloL 25 MG TABLET PO SCH ×2 (08:44→17:38)
[2020-05-08] MEDS: MEMANTINE 10 MG TABLET PO SCH ×2 (08:44→21:55)
[2020-05-08] MEDS: MAGNESIUM OXIDE 400 MG TABLET PO SCH (08:44)
[2020-05-08] MEDS: SODIUM CHLORIDE 0.9% 1,000 ML IV SCH ×2 (09:41→22:03)
[2020-05-08] MEDS ORDERED: POTASSIUM CHLORIDE INJ 50 MEQ in SODIUM CHLORIDE 0.9% 500 ML IV ONE (11:00)
[2020-05-08] MEDS: cefTRIAXone 1,000 MG in SODIUM CHLORIDE 0.9% 100 ML IV SCH (21:54)
[2020-05-08] MEDS: ATORVASTATIN 40 MG TABLET PO SCH (21:55)
[2020-05-09 05:58] LABS: Basophils % 0.2 % (0.0-0.8); Eosinophils # 0.2 10*3/uL (0.0-0.87); Eosinophils % 3.9 % (0.00-10.9); Hematocrit 27.3 VOL% (42.0-52.0); Hemoglobin 8.9 GM/DL (14.0-18.0); Immature Granulocytes % 0.5 %; Immature Granulocytes Absolute 0.02 #; Lymphocytes # 0.7 10*3/uL (1.4-4.0); Lymphocytes % 16.1 % (21.2-54.2); Mean Corpuscular HGB Conc 32.6 GM/DL (32-36); Mean Corpuscular Volume 98.2 FL (87-102); Mean Platelet Volume 12.6 FL (9.6-12.0); Monocytes % 11.7 % (1.7-12.7); Neutrophils % 67.6 % (38.7-73.9); Red Blood Count 2.78 MC/CUMM (3.8-5.5); Red Cell Distribution Width 13.6 % (9.3-17.3); White Blood Count 4.1 T/CUMM (4-12)
[2020-05-09 06:02] LABS: Platelet Count 76 T/CUMM (130-400)
[2020-05-09 06:17] LABS: Albumin 2.2 G/DL (3.4-5.0); Bilirubin,Direct 1.11 MG/DL (0.0-0.20); Bilirubin,Indirect 1.7 MG/DL (0.0-1.0); Bilirubin,Total 2.8 MG/DL (0.2-1.0); Calcium 8.7 MG/DL (8.5-10.1); Osmolality,Calculated 284.1 MOS/KG (273-304); Potassium 3.2 MMOL/L (3.5-5.1); Total Protein 6.3 G/DL (6.4-8.3)
[2020-05-09] MEDS: carvediloL 25 MG TABLET PO SCH ×2 (08:32→17:19)
[2020-05-09 08:34] LABS: Anisocytosis 1+; Band Neutrophils 3 % (0-10); Eosinophils 3 % (0-10); Hypochromasia 2+; Lymphocytes 19 % (20-55); Macrocytosis 1+; Platelet Estimate Decreased; Segmented Neutrophils 68 % (50-85); Total Cells Counted 100
[2020-05-09] MEDS ORDERED: INDOCYANINE GREEN 25 MG VIAL IV ONE (09:00)
[2020-05-09] MEDS ORDERED: LIDOCAINE 1%/EPI INJ 20 ML VIAL ONE (10:05)
[2020-05-09] MEDS ORDERED: BUPIVACAINE MPF 0.25% 30 ML VIAL ONE (10:05)
[2020-05-09] MEDS ORDERED: TISSUE ADHESIVE 1 EACH APPLICATOR TOP ONE ×2 (10:05→12:51)
[2020-05-09] MEDS ORDERED: LIDOCAINE 2% 5 ML VIAL ONE (10:18)
[2020-05-09] MEDS ORDERED: propofoL 200 MG/20 ML VIAL IV ONE (10:18)
[2020-05-09] MEDS ORDERED: SUCCINYLCHOLINE 200 MG/10 ML VIAL ONE (10:18)
[2020-05-09] MEDS ORDERED: DEXAMETHASONE 4 MG/1 ML VIAL ONE (10:18)
[2020-05-09] MEDS ORDERED: fentaNYL 100 MCG/2 ML VIAL ONE (10:18)
[2020-05-09] MEDS ORDERED: ROCURONIUM 50 MG/5 ML VIAL IV ONE ×2 (10:18→13:01)
[2020-05-09] MEDS ORDERED: ONDANSETRON 4 MG/2 ML VIAL ONE (10:18)
[2020-05-09] MEDS ORDERED: FUROSEMIDE 20 MG/2 ML VIAL ONE (11:09)
[2020-05-09] MEDS ORDERED: ALBUTEROL INHALER 18 GM INH ONE (11:09)
[2020-05-09] MEDS ORDERED: LABETALOL 20 MG/4 ML SYRINGE IV ONE ×3 (11:13→13:39)
[2020-05-09] MEDS ORDERED: SEVOFLURANE 1 UNIT/15 MINUTE INH ONE ×4 (11:14→12:44)
[2020-05-09] MEDS ORDERED: ALBUMIN 5% 12.5 GM/250 ML VIAL IV ONE (11:54)
[2020-05-09] MEDS ORDERED: PHENYLEPHRINE 1 MG/10 ML SYRINGE IV ONE (13:01)
[2020-05-09] MEDS ORDERED: LACTATED RINGERS 1,000 ML IV ONE (13:01)
[2020-05-09] MEDS ORDERED: HYDROmorphone 2 MG/1 ML VIAL IV PRN (13:32)
[2020-05-09 13:34] LABS: Basophils % 0.2 % (0.0-0.8); Eosinophils # 0.1 10*3/uL (0.0-0.87); Eosinophils % 2.7 % (0.00-10.9); Hematocrit 29.4 VOL% (42.0-52.0); Hemoglobin 9.6 GM/DL (14.0-18.0); Immature Granulocytes % 1.3 %; Immature Granulocytes Absolute 0.06 #; Lymphocytes # 0.5 10*3/uL (1.4-4.0); Lymphocytes % 10.4 % (21.2-54.2); Mean Corpuscular HGB Conc 32.7 GM/DL (32-36); Mean Corpuscular Volume 99.7 FL (87-102); Mean Platelet Volume 11.5 FL (9.6-12.0); Monocytes % 10.9 % (1.7-12.7); Neutrophils % 74.5 % (38.7-73.9); Red Blood Count 2.95 MC/CUMM (3.8-5.5); Red Cell Distribution Width 13.8 % (9.3-17.3); White Blood Count 4.8 T/CUMM (4-12)
[2020-05-09 13:40] LABS: Platelet Count 78 T/CUMM (130-400)
[2020-05-09 14:09] LABS: Eosinophils 4 % (0-10); Lymphocytes 11 % (20-55); Segmented Neutrophils 79 % (50-85); Total Cells Counted 100
[2020-05-09 14:10] LABS: Hypochromasia 1+; Platelet Estimate Decreased
[2020-05-09] MEDS: AZITHROMYCIN 250 MG TABLET PO SCH (14:55)
[2020-05-09] MEDS: MAGNESIUM OXIDE 400 MG TABLET PO SCH (14:55)
[2020-05-09] MEDS: MEMANTINE 10 MG TABLET PO SCH ×2 (14:55→21:16)
[2020-05-09] MEDS: ASPIRIN EC 81 MG TABLET PO SCH (15:04)
[2020-05-09] MEDS ORDERED: hydrALAZINE 20 MG/1 ML VIAL IV ONE (15:57)
[2020-05-09] MEDS ORDERED: LEVOFLOXACIN INJ 750 MG in PREMIX 1 EACH IV SCH (16:00)
[2020-05-09] MEDS: ATORVASTATIN 40 MG TABLET PO SCH (21:16)
[2020-05-09] MEDS: metroNIDAZOLE INJ 500 MG in PREMIX 1 EACH IV SCH (21:17)
[2020-05-10] MEDS: metroNIDAZOLE INJ 500 MG in PREMIX 1 EACH IV SCH ×2 (04:30→09:44)
[2020-05-10 06:19] LABS: Basophils % 0.2 % (0.0-0.8); Eosinophils % 0.2 % (0.00-10.9); Hematocrit 28.7 VOL% (42.0-52.0); Hemoglobin 9.5 GM/DL (14.0-18.0); Immature Granulocytes % 1.3 %; Immature Granulocytes Absolute 0.07 #; Lymphocytes # 0.7 10*3/uL (1.4-4.0); Mean Corpuscular HGB Conc 33.1 GM/DL (32-36); Mean Platelet Volume 11.6 FL (9.6-12.0); Monocytes % 12.4 % (1.7-12.7); Neutrophils % 73.9 % (38.7-73.9); Red Blood Count 2.96 MC/CUMM (3.8-5.5); Red Cell Distribution Width 13.4 % (9.3-17.3); White Blood Count 5.4 T/CUMM (4-12)
[2020-05-10 06:23] LABS: Platelet Count 94 T/CUMM (130-400)
[2020-05-10 06:45] LABS: Albumin 2.3 G/DL (3.4-5.0); Bilirubin,Total 2.6 MG/DL (0.2-1.0); Calcium 8.9 MG/DL (8.5-10.1); Osmolality,Calculated 282.4 MOS/KG (273-304); Potassium 3.2 MMOL/L (3.5-5.1); Total Protein 6.6 G/DL (6.4-8.3)
[2020-05-10 06:59] LABS: Eosinophils 1 % (0-10); Lymphocytes 8 % (20-55); Segmented Neutrophils 81 % (50-85); Total Cells Counted 100
[2020-05-10 07:00] LABS: Hypochromasia Slight; Platelet Estimate Decreased
[2020-05-10] MEDS: MAGNESIUM OXIDE 400 MG TABLET PO SCH (08:50)
[2020-05-10] MEDS: MEMANTINE 10 MG TABLET PO SCH (08:50)
[2020-05-10] MEDS: ASPIRIN EC 81 MG TABLET PO SCH (08:50)
[2020-05-10] MEDS: carvediloL 25 MG TABLET PO SCH (08:50)
[2020-05-10] MEDS: POTASSIUM CHLORIDE RIDER 10 MEQ in PREMIX 1 EACH IV PRN (08:52)
[2020-05-10 11:17] VITALS: BP 129/78
== END 2020-05-10 15:00 | disposition home health service (06) | DRG 853 ==
LOC: N.ED 21:55 → SUATTDRO 05-06 03:29 → N.EDINP 05-06 03:29 → N.5E 05-06 05:19
PROVIDERS: ADMIT Internal Medicine; ATTEND Internal Medicine